=== PATIENT | female | born 1995 | race Two or more races ===

== ENCOUNTER → 2017-12-16 15:31 | Outpatient (CLI) | payer OTHER, SELFPAY ==
[2017-12-18 16:41] LABS: HPV Reflexed? NOT INDICATED
== END ==
PROVIDERS: Visit Provider Obstetrics & Gynecology
DX: Z12.4 Encounter for screening for malignant neoplasm of cervix (principal); Z01.419 Encounter for gynecological examination (general) (routine) without abnormal findings
CPT/HCPCS: 36415; 81241; 88175; G0145

== ENCOUNTER → 2021-01-18 16:28 | Outpatient (CLI) | payer BC, SELFPAY ==
[2021-01-24 16:07] LABS: HPV Reflexed? NOT INDICATED
== END ==
PROVIDERS: Visit Provider Obstetrics & Gynecology
DX: Z12.4 Encounter for screening for malignant neoplasm of cervix (principal)
CPT/HCPCS: 88175; G0145